=== PATIENT | female | born 1935 | race Caucasian/White ===

== ENCOUNTER → 2016-12-10 | Outpatient (CLI) | payer MEDICARE, BC, OTHER ==
--- NOTE | 2016-12-10 11:26 | REPMRS ---
Patient History The patient states she had a clinical breast exam in August 2016. Patient has history of cancer in the left breast at age 75. Family history of colorectal cancer in father at age 56. Malignant lumpectomy of the left breast, 2010. Radiation therapy of the left breast, 2010. Taking tamoxifen for 2 years. Digital Mammo Screening Bilat: December 10, 2016 - Exam #: [id number] Bilateral CC and MLO view(s) were taken. Technologist: Emilia Benito, Technologist Prior study comparison: November 27, 2015, bilateral digital mammo screening bilat performed at [facility]. November 23, 2014, bilateral digital mammo screening bilat performed at [facility]. November 22, 2013, bilateral digital mammo screening bilat performed at [facility]. FINDINGS: There are scattered fibroglandular densities. There has been no change in the appearance of the mammogram from the prior studies. There are stable post treatment changes in the left breast. There is a mild amount of scattered fibroglandular density which is fairly symmetric. There is no interval development of dominant mass, architectural distortion, or clustered microcalcification suggestive of malignancy. ASSESSMENT: BI-RADS/ACR category 1 mammogram. Negative. Recommendation Routine screening mammogram in 1 year (for women over age 40). This mammogram was interpreted with the aid of an FDA-approved computer-aided dectection system. Electronically Signed By: Jens Reynolds MD 12/10/16 112
== END ==
LOC: M RAD 10:55
PROVIDERS: ATTEND Internal Medicine Hematology & Oncology
DX: Z12.31 Encounter for screening mammogram for malignant neoplasm of breast (principal)

== ENCOUNTER → 2017-01-19 | Outpatient (REF) | payer MEDICARE, BC, OTHER ==
[2017-01-19 14:22] LABS: FERRITIN 253 NG/ML (8-252)
== END ==
LOC: M LAB REF 13:26
PROVIDERS: ATTEND Internal Medicine Medical Oncology
DX: E83.110 Hereditary hemochromatosis (principal); D50.9 Iron deficiency anemia, unspecified